=== PATIENT | female | born 1955 | race Caucasian/White ===

== ENCOUNTER 2017-02-23 11:33 | Emergency (ER) | payer OTHER ==
[~2017-02-23] VITALS: Ht 147.3 cm; Wt 62.0 kg
[~2017-02-23 11:33] MED LIST: AMLO-147 PO; FER325 PO; METF500T4 PO; OMEP40CA6 PO
[2017-02-23 11:41] VITALS: Ht 147.3 cm; Wt 62.0 kg
[2017-02-23] MEDS ORDERED: FER325 PO (15:09)
[2017-02-23] MEDS ORDERED: GLIP-95 PO (15:12)
[2017-02-23 15:29] LABS: ADD SCAN DIFF NO
[2017-02-23 15:34] LABS: ABNORMAL IP MESSAGE 1; HEMATOCRIT 24.8 % (37.0-47.0); HEMOGLOBIN 7.2 g/dl (12.0-16.0); MEAN CORPUSCULAR HEMOGLOBIN 25.1 pg (29.0-33.0); MEAN CORPUSCULAR VOLUME 86.4 fl (82.0-101.0); MEAN PLATELET VOLUME 9.6 fl (7.4-10.4); PLATELET COUNT 77 10^3/UL (140-415); RED BLOOD COUNT 2.87 10^6/ul (4.20-5.40); RED CELL DISTRIBUTION WIDTH 18.5 % (11.5-14.5); WHITE BLOOD COUNT 3.9 10^3/ul (4.8-10.8)
[2017-02-23 15:45] LABS: ALBUMIN 3.7 g/dl (3.3-4.9)
[2017-02-23 15:46] LABS: POTASSIUM 3.6 mmol/L (3.5-5.1)
[2017-02-23 15:48] LABS: ALBUMIN/GLOBULIN RATIO 1.15; BILIRUBIN,INDIRECT 0.4 mg/dl (0-1.1); BILIRUBIN,TOTAL 0.4 mg/dl (0.2-1.3); CREATININE 0.5 mg/dl (0.44-1.00); TOTAL PROTEIN 6.9 g/dl (6.1-8.1)
[2017-02-23 15:49] LABS: CALCIUM 8.6 mg/dl (8.4-10.2)
[2017-02-23 17:06] LABS: LYMPHOCYTES # 0.5 10^3/ul (0.8-2.9); MONOCYTE # 0.5 10^3/ul (0.3-0.9); NEUTROPHIL # 2.8 10^3/ul (1.6-7.5)
--- NOTE | 2017-02-23 17:25 | ERD ---
ER Documentation Chief Complaint Date/Time DATE: 02/23/17 TIME: 17:20 Chief Complaint sent by dr hoyos from blood transfusion, headache HPI This is a 61-year-old female sent by her primary care doctor soha to get a blood transfusion. The patient has a history of chronic anemia and angiodysplasia and cirrhosis. The patient's symptoms is just generalized weakness she does not have any black stools or vomiting and has no menstrual cycles anymore. Patient's had to have blood before and she is here for blood transfusion discharge home per her doctor ROS All systems reviewed and are negative except as per history of present illness. Medications Home Meds Reported Medications Glipizide* (Glipizide*) 10 Mg Tablet, 10 MG PO AC BREAKFAST for TK 1 TAB PO QD AC, #90 TAB 02/23/17 Ferrous Sulfate* (Ferrous Sulfate*) 325 Mg Tabec, 325 MG PO TID, TAB 02/23/17 Amlodipine Besylate* (Amlodipine Besylate*) 10 Mg Tablet, 10 MG PO DAILY, TAB 10/23/14 Discontinued Reported Medications Ferrous Sulfate* (Ferrous Sulfate*) 325 Mg Tabec, 325 MG PO DAILY, TAB 10/14/16 Omeprazole* (Omeprazole*) 40 Mg Capsule.dr, 40 MG PO DAILY, #30 CAP 10/14/16 Metformin* (Glucophage*) 500 Mg Tab, 500 MG PO BID, TAB 10/23/14 Allergies Allergies: Coded Allergies: No Known Allergy (Unverified , 02/23/17) PMhx/Soc History of Surgery: Yes (C/S X 3) Anesthesia Reaction: No Hx Neurological Disorder: No Hx Respiratory Disorders: No Hx Cardiac Disorders: No Hx Psychiatric Problems: No Hx Miscellaneous Medical Probl: Yes (HTN, ANEMIA, LIVER CIRRHOISIS, CANCER OF THE LIVER PER PT.) Hx Alcohol Use: Yes Hx Substance Use: No Hx Tobacco Use: No FmHx Family History: No coronary disease Physical Exam Vitals Vital Signs Date Time Temp Pulse Resp B/P Pulse Ox O2 Delivery O2 Flow Rate FiO2 02/23/17 11:41 97.6 83 18 138/67 98 Physical Exam Const: Well-developed, well-nourished Head: Atraumatic, normocephalic Eyes: Normal Conjunctiva, PERRLA, EOMI, normal sclera, no nystagmus ENT: Normal External Ears, Nose and Mouth, moist mucus membranes. Neck: Full range of motion. No meningismus, no lymphadenopathy. Resp: Clear to auscultation bilaterally, no wheezing, rhonchi, rales Cardio: Regular rate and rhythm, 3/6 systolic ejection murmur, S1 S2 present Abd: Soft, non tender x 4, non distended. Normal bowel sounds, no guarding or rebound, no pulsitile abdominal masses or bruits Skin: No petechiae or rashes, no ecchymosis , no maculopapular rash Back: No midline or flank tenderness Ext: No cyanosis, or edema, FROM x 4, normal inspection, neurovascularly intact x 4 Neur: Awake and alert, STR 5/5 x 4, sensation intact x 4, no focal findings, cerebellum intact Psych: Normal Mood and Affect Result Diagram: 02/23/17 1520 02/23/17 1520 Results 24 hrs Laboratory Tests Test 02/23/17 14:45 02/23/17 15:20 Bedside Glucose 66mg/dL White Blood Count 3.910^3/ul Red Blood Count 2.8710^6/ul Hemoglobin 7.2g/dl Hematocrit 24.8% Mean Corpuscular Volume 86.4fl Mean Corpuscular Hemoglobin 25.1pg Mean Corpuscular Hemoglobin Concent 29.0g/dl Red Cell Distribution Width 18.5% Platelet Count 7710^3/UL Mean Platelet Volume 9.6fl Neutrophils % 72.0% Lymphocytes % 14.0% Monocytes % 14.0% Neutrophils # 2.810^3/ul Lymphocytes # 0.510^3/ul Monocytes # 0.510^3/ul Sodium Level 143mmol/L Potassium Level 3.6mmol/L Chloride Level 107mmol/L Carbon Dioxide Level 26mmol/L Anion Gap 14 Blood Urea Nitrogen 10mg/dl Creatinine 0.50mg/dl Glucose Level 68mg/dl Calcium Level 8.6mg/dl Total Bilirubin 0.4mg/dl Direct Bilirubin 0.00mg/dl Indirect Bilirubin 0.4mg/dl Aspartate Amino Transf (AST/SGOT) 43IU/L Alanine Aminotransferase (ALT/SGPT) 40IU/L Alkaline Phosphatase 112IU/L Total Protein 6.9g/dl Albumin 3.7g/dl Globulin 3.20g/dl Albumin/Globulin Ratio 1.15 Procedures/MDM Patient is anemic at 7.2. Her blood is ready to be transfused however she is refusing to get the blood and wants to go home. We had extensive discussion with her about getting the blood and the necessity of it. Patient says she wants to go home because it is too loud in the ER. We had the donor services manager speak with her and she still will leave AGAINST MEDICAL ADVICE Departure Diagnosis: Primary Impression: Anemia Anemia type: unspecified type Qualified Code: D64.9 - Anemia, unspecified type Condition: Stable HU AVERY DO Feb 23, 2017 17:25
== END 2017-02-23 17:33 | disposition left against medical advice (07) ==
LOC: E/R 11:33
DX: D64.9 Anemia, unspecified (principal); I10 Essential (primary) hypertension; E11.9 Type 2 diabetes mellitus without complications; Z79.84 Long term (current) use of oral hypoglycemic drugs; Z85.05 Personal history of malignant neoplasm of liver
CPT/HCPCS: 36415; 80053; 82962; 85025; 86850; 86900; 86901; 86920; Z7502; 99283

== ENCOUNTER 2017-03-15 08:52 | Outpatient (CLI) | payer OTHER ==
[~2017-03-15] VITALS: Ht 139.7 cm; Wt 59.5 kg
[~2017-03-15 08:52] MED LIST changes: +GLIP-95 PO; -METF500T4 PO; -OMEP40CA6 PO
[2017-03-15 09:00] VITALS: BP 126/60; PULSE 73; RESP 18; Ht 139.7 cm; Wt 59.5 kg
[2017-03-15] MEDS ORDERED: GABA300C16 PO (09:24)
[2017-03-15] MEDS ORDERED: RANI300T PO (09:24)
[2017-03-15] MEDS ORDERED: QUIN20TA23 PO (09:28)
--- NOTE | 2017-03-15 22:35 | CONS ---
[facility] INITIAL OUTPATIENT CONSULTATION NOTE DATE OF CONSULTATION: 03/15/2017 PLACE OF SERVICE: [facility]. ASSESSMENT AND PLAN: A very pleasant but unfortunate 62-year-old lady with multiple lesions in the setting of hepatitis C cirrhosis, concerning for hepatocellular carcinoma. Given the relatively low alpha fetoprotein, my recommendation was to proceed with percutaneous biopsy of 1 of these lesions with image guidance. The patient is not a good surgical candidate given the amount of portal hypertension and the distribution of these lesions. She could potentially benefit from local treatment to the liver in the form of transarterial chemoembolization, bland embolization, radioembolization, or similar local treatments. Systemic chemotherapy may also be considered, although the results are not very promising. I do not believe that there is any indication for other acute interventions at the moment and consider the patient to be high risk for surgical complications, should that be necessary, and poor prognosis if this is multifocal hepatocellular carcinoma. Possibility of a liver transplant evaluation should be considered, although the number of lesions argue against candidacy. Biopsy again would help in this arena. I explained all this in detail with the patient (there was no family present during any of my discussions with the patient) and answered all her questions to the best of my ability. I believe that she understood and wished to proceed with the plans. With above assessment, I recommend the followin. Percutaneous liver biopsy under image guidance. 2. Multidisciplinary Tumor Board presentation. 3. Possible consideration for liver transplant evaluation. 4. Careful ongoing evaluation by hepatology. 5. Careful ongoing evaluation by hematology regarding bleeding issues. 6. Possible local treatment to the liver in the form of transarterial chemoembolization, should the biopsy be positive. Thank you again for allowing us to participate in the care of this very pleasant lady and I am certain her wonderful family. If there are any questions , please feel free to contact me at [phone]. UPDATED CLINICAL SUMMARY: A very pleasant 62-year-old lady with multiple comorbid issues including a BMI of 30.5 as well as hypertension, depression, arthritis, back pain, and a number of other medical issues with diagnosis of hepatitis C infection, which likely is from the time of her C-sections about 40 years ago, and known cirrhosis of the liver, who was recently found to have liver lesions. COMORBIDITIES: 1. BMI of 30.5. 2. Nonalcoholic fatty liver disease on ultrasound as well as history of diabetes as a predisposing risk factor. 3. Diabetes mellitus. 4. Hepatitis A immune. 5. Hypertension. 6. Depression. 7. Arthritis. 8. Back pain. 9. Anemia requiring blood transfusions in the past. 10. History of eating dirt. 11. History of gastritis. 12. Gastroesophageal reflux disease without esophagitis. 13. Epistaxis, which is frequent and leading to anemia or at least contributing to it. 14. History of systolic murmur diagnosed 11/2016. 15. History of C-sections x3. 16. 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 17. History of blood transfusions in 1973, 2013, and 2014. 18. Complication of portal hypertension with borderline thrombocytopenia with platelet count in the low 100s as well as significant varices around the spleen. HISTORY OF PRESENT ILLNESS: The patient is a very pleasant 62-year-old lady with above-mentioned comorbidities who we were kindly asked to consult regarding management of her newly discovered lesions in the liver. These were seen in a recent ultrasound and that led to a CT scan of abdomen and pelvis, triple phase, with and without contrast on 02/12/2017 that showed marked nodularity in contour of the liver consistent with the patient's history of cirrhosis. There are numerous ill-defined heterogeneously enhancing masses noted in the liver, which appear to demonstrate washout within the right posterior inferior lobe of the liver, largest of which measures 3.6 x 4 cm (8, image 54). There are also several ill-defined hypoenhancing masses noted throughout the liver, for measurement purposes, within the posterior aspect of segment 3 measuring 1.1 x 1.2 cm (8, image 36) and within the central right lobe of the liver, likely within segment 8 measuring 1.3 x 1.4 cm (8, image 30) . The hepatic vasculature was thought to be patent and the portal vein was within normal limits of caliber measuring 11 mm. Spleen measured at 13.5 cm and multiple splenic hilar mesenteric and retroperitoneal collateral vessels were noted. Splenorenal shunt was noted. Mild enlarged periportal lymph nodes were also noted measuring up to 12 mm in short axis diameter. No retroperitoneal lymphadenopathy noted and no ascites. Note that I personally reviewed these images and I agree in general with their overall reported findings. The patient herself did not have any other major complaints and has been living a relatively complicated life, mainly due to her epistaxis and anemia requiring blood transfusions and care from hematology. ALLERGIES: NO KNOWN DRUG ALLERGIES. MEDICATIONS: At home the patient is listed to be on: 1. Ferrous sulfate. 2. Gabapentin. 3. Glipizide. 4. Quinapril. 5. Ranitidine. SOCIAL HISTORY: The patient lives with her family. She is originally from [facility] and has 2 children. 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 She is a never smoker and rarely drank alcohol in the past and quit early 2015. No history of intravenous drug abuse. FAMILY HISTORY: Father is with liver disease. There is no mention of major medical, surgical, or oncologic problems in the family. REVIEW OF SYSTEMS: Other than the above-mentioned, there are no other pertinent positives or pertinent negatives in a complete 14-point review of systems. PHYSICAL EXAMINATION: GENERAL: The patient appears to be a very pleasant lady of descent, appearing stated age, sitting in a chair comfortably, and in no acute distress. BMI is 30.5. VITAL SIGNS: Temperature 97.6. Blood pressure 126/60, pulse 73, respiratory rate 18, pulse oximetry 95% on room air. HEAD AND NECK: Exam is significant for slight dried blood in the nostrils. HEENT: Normocephalic and atraumatic. Extraocular muscles and hearing are grossly intact bilaterally and symmetrically. Sclerae are nonicteric. Oral cavity is clear; oral mucosa appeared to be pink and moist. Dentition: fair. NECK: Supple. There is no lymphadenopathy or JVD. There is no submental, submandibular or supraclavicular lymphadenopathy. CHEST: Rises symmetrically with each breath; patient is breathing comfortably. There are no audible wheezes, rales or rhonchi on the gross exam. HEART: Pulse is regular and palpable on the right wrist. Capillary refill was normal. Carotid pulses are palpable bilaterally and symmetrically in the neck. EXTREMITIES: Lower extremities contain no pitting edema around the ankles bilaterally and symmetrically. ABDOMEN: Abdomen is soft, nontender and nondistended. There are no peritoneal signs or guarding. No evidence of ascites, organomegaly, caput medusae, engorged subcutaneous veins, or other abnormalities. SKIN: Appears to be pink and feels warm to touch. NEUROLOGIC: Awake, alert, and follows commands appropriately. LABORATORY VALUES: As above. Note that in 12/2016, patient's creatinine was 0.56. Total bilirubin 0.4, alkaline phosphatase is 105, AST 38, ALT 24, albumin 3.7. White blood cell count 2.5, hemoglobin 8.8, platelets 105. INR 1.1. Alpha fetoprotein 5.6. IMAGING: As above. Note that I personally reviewed all the available and pertinent images and I agree in general with their overall reported findings. Dictated By: ARIE GARCIA/DAVIDE Conf#: [id number] DID#: [id number] CC: Ghanshyam Tello; Joshua Mcgrath; WINDY REDDY MD;*EndCC* MTDD
== END 2017-03-15 14:33 | disposition home or self-care (01) ==
LOC: HPC 08:52
PROVIDERS: ATTEND Transplant Surgery
DX: K76.9 Liver disease, unspecified (principal); K74.60 Unspecified cirrhosis of liver; K76.0 Fatty (change of) liver, not elsewhere classified; E11.9 Type 2 diabetes mellitus without complications; I10 Essential (primary) hypertension; F32.9 Major depressive disorder, single episode, unspecified; M19.90 Unspecified osteoarthritis, unspecified site; D64.9 Anemia, unspecified; K21.9 Gastro-esophageal reflux disease without esophagitis; K76.6 Portal hypertension; D69.6 Thrombocytopenia, unspecified; I86.8 Varicose veins of other specified sites; M54.9 Dorsalgia, unspecified
CPT/HCPCS: G0463

== ENCOUNTER 2017-04-07 08:28 | Day surgery (SDC) | payer OTHER ==
[2017-04-07] VITALS (48 sets, daily range): BP systolic 81–177; BP diastolic 52–100; PULSE 60–106; RESP 11–31; Ht 142.2 cm; Wt 60.0 kg
[~2017-04-07] VITALS: Ht 142.2 cm; Wt 60.0 kg
[~2017-04-07 08:28] MED LIST changes: -AMLO-147 PO; +GABA300C16 PO; +QUIN20TA23 PO; +RANI300T PO
[2017-04-07] MEDS ORDERED: GLIP-95 PO (09:25)
[2017-04-07] MEDS ORDERED: ACET650T98 PO (09:29)
[2017-04-07 10:19] LABS: ADD SCAN DIFF NO
[2017-04-07 10:31] LABS: BASOPHILS % 0.6 % (0.0-2.0); EOSINOPHILS % 1.2 % (0.0-7.0); HEMATOCRIT 31.5 % (37.0-47.0); HEMOGLOBIN 9.6 g/dl (12.0-16.0); MEAN CORPUSCULAR HEMOGLOBIN 28.3 pg (29.0-33.0); MEAN CORPUSCULAR HGB CONC 30.5 g/dl (32.0-37.0); MEAN CORPUSCULAR VOLUME 92.9 fl (82.0-101.0); MEAN PLATELET VOLUME 10.8 fl (7.4-10.4); MONOCYTE # 0.3 10^3/ul (0.3-0.9); MONOCYTES % 9.3 % (0.0-11.0); NEUTROPHILS % 59.6 % (39.0-77.0); PLATELET COUNT 122 10^3/UL (140-415); RED BLOOD COUNT 3.39 10^6/ul (4.20-5.40); RED CELL DISTRIBUTION WIDTH 17.5 % (11.5-14.5); WHITE BLOOD COUNT 3.4 10^3/ul (4.8-10.8)
[2017-04-07] MEDS ORDERED: LIDOCAINE 1% (MDV) 20 ML INJ ONE (10:31)
[2017-04-07] MEDS ORDERED: GELATIN 12MM X 7 MM SPONGE ONE (10:31)
[2017-04-07 10:37] LABS: ALBUMIN/GLOBULIN RATIO 1.42; BILIRUBIN,INDIRECT 0.5 mg/dl (0-1.1); BILIRUBIN,TOTAL 0.5 mg/dl (0.2-1.3); TOTAL PROTEIN 6.8 g/dl (6.1-8.1)
[2017-04-07 10:41] LABS: CALCIUM 8.8 mg/dl (8.4-10.2); CREATININE 0.5 mg/dl (0.44-1.00); POTASSIUM 4.2 mmol/L (3.5-5.1)
[2017-04-07 10:44] LABS: INR 1.15; PROTIME 14.7 Sec (12.2-14.2); PT RATIO 1.1
[2017-04-07 10:45] LABS: PARTIAL THROMBOPLASTIN TIME 33.2 Sec (25.0-35.0)
[2017-04-07] MEDS ORDERED: FENTAnyl 50 MCG/ML VIAL ONE ×2 (11:17→11:40)
[2017-04-07] MEDS ORDERED: MIDAZOLAM 1 MG/ML 2 ML INJ ONE (11:18)
[2017-04-07] MEDS ORDERED: HYDROmorphONE 1 MG/ML SYG ONE (12:38)
[2017-04-07] MEDS ORDERED: ONDANSETRON 4 MG INJ ONE (12:40)
--- NOTE | 2017-04-07 12:42 | RADRPT ---
PROCEDURE: Ultrasound guided liver biopsy CLINICAL INDICATION: Liver mass, hepatitis C COMPARISON: None TECHNIQUE: Multiple sonographic images of the liver were obtained utilizing a grayscale and color- flow. The images were reviewed on a high-resolution PACS workstation. Ultrasound examination demonstrated multiple hyperechoic and hypoechoic partially circumscribed lesi ons in the liver including a 3.2 x 1.9 cm lesion in the right lobe which is hypoechoic and a second lesion in the right lobe which is hyperechoic and measures 3.0 x 2.8 cm. . Versed and Fentanyl were administered by the nurse who monitored the patient. Following distended prep, and to under ultrasound guidance, a 17 gauge coaxial needle was advanced i nto the lesion. Three 18-gauge biopsies were obtained and submitted to cytology where preliminary an alysis deemed the specimens to be adequate. The tract was embolized with Gelfoam slurry as the needl e was removed. Postprocedure scans showed no evidence of bleeding. A sterile dressing was applied. The patient tolerated the procedure well. FINDINGS: As above. IMPRESSION: Uncomplicated ultrasound-guided liver mass biopsy, as above. RPTAT: EE Physician Carolina Date Time Electronically viewed and signed by Physician Carolina on 04/07/2017 12:42 /
--- NOTE | 2017-04-07 12:43 | RADRPT ---
PROCEDURE: Ultrasound guided liver biopsy CLINICAL INDICATION: Hepatitis C, cirrhosis TECHNIQUE: Multiple sonographic images of the liver were obtained utilizing a grayscale and color-flow. The amber ges were reviewed on a high-resolution PACS workstation. Versed and Fentanyl were administered by the nurse who monitored the patient. A site in the patient's RIGHT abdomen was selected and marked. The area was prepped and draped in the usual sterile fashion. 1% lidocaine was utilized. A single core biopsy was obtained with an 18-gauge biopsy gun. The needle was removed. A sterile dressing was applied. The patient tolerated the procedure well. COMPARISON: None FINDINGS: As above IMPRESSION: Uncomplicated ultrasound-guided liver biopsy. RPTAT: EE Physician Carolina Date Time Electronically viewed and signed by Physician Carolina on 04/07/2017 12:43 /
[2017-04-07] MEDS ORDERED: ONDANSETRON 4 MG INJ IV STA (13:50)
[2017-04-07] MEDS ORDERED: HYDROCODONE/APAP (5/325) TAB PO PRN ×3 (14:30→15:00)
[2017-04-07] MEDS ORDERED: HYDROmorphONE 1 MG/ML SYG IV ONE (14:30)
[2017-04-07] MEDS ORDERED: NACL 0.9% 3 ML SYG IV SCH (15:00)
[2017-04-07] MEDS ORDERED: ONDANSETRON 4 MG INJ IV PRN (15:00)
[2017-04-07] MEDS ORDERED: DOCUSATE SODIUM 100 MG CAP PO PRN (15:00)
[2017-04-07] MEDS ORDERED: morphine 2 MG INJ IV PRN (15:00)
[2017-04-07] MEDS ORDERED: ZOLPIDEM 5 MG TAB PO PRN (15:00)
[2017-04-07] MEDS ORDERED: ACETAMINOPHEN 325 MG TAB PO PRN (15:00)
[2017-04-07] MEDS: D5W-0.45 NACL + KCL 20 MEQ 1,000 ML IV SCH (17:17)
[2017-04-07] MEDS ORDERED: GLUCAGON 1 MG INJ IM PRN (17:30)
[2017-04-07] MEDS ORDERED: GLUCOSE GEL 15 GRAM TUBE BUCCAL PRN (17:30)
[2017-04-07] MEDS ORDERED: GLUCOSE GEL 15 GRAM TUBE PO PRN ×2 (17:30)
[2017-04-07] MEDS ORDERED: DEXTROSE 50% 50 ML SYRINGE IV PRN ×2 (17:30)
--- NOTE | 2017-04-07 17:46 | HP ---
DATE OF ADMISSION: 04/07/2017 CHIEF COMPLAINT: Abdominal pain after liver biopsy. HISTORY OF PRESENT ILLNESS: The patient is a 62-year-old female with history of hypertension and di abetes. The patient also has a history of hepatitis C acquired from a blood transfusion in [facility]. The patient has a known history of liver mass and underwent liver biopsy today. It was fe lt that the patient may have had some general bleeding as a result of the biopsy, hence, the patient was felt to require observation overnight. The patient does report some pain in the back on the ri t side. Otherwise, she has no significant complaints. PAST MEDICAL HISTORY: As per HPI. HOME MEDICATIONS: 1. Ferrous sulfate. 2. Glipizide. 3. Ranitidine. 4. Tylenol. 5. Quinapril. ALLERGIES: NO KNOWN DRUG ALLERGIES. FAMILY HISTORY: Unknown. SOCIAL HISTORY: Denies any alcohol, tobacco, or drug abuse. REVIEW OF SYSTEMS: A 12-point review of systems negative except as in HPI. PHYSICAL EXAMINATION: VITAL SIGNS: Temperature is 97.8, pulse 74, respiratory rate is 13, BP is 125/70, saturation 98% on room air. GENERAL: No acute distress, alert and oriented. HEENT: Normocephalic, atraumatic. LUNGS: Clear to auscultation. CARDIOVASCULAR: Regular rate and rhythm. ABDOMEN: Nondistended, nontender, soft. Small hematoma noted in the right upper quadrant. EXTREMITIES: No clubbing, cyanosis, or edema. LABORATORY TESTS: White count 3.4, hemoglobin 11.6, platelets are 122. Chemistry within normal fernandez its. Chloride 113, AST 62. INR is 1.15. DIAGNOSTICS: Ultrasound-guided liver biopsy shows uncomplicated ultrasound-guided liver biopsy. ASSESSMENT AND PLAN: 1. Liver mass, status post ultrasound-guided biopsy. The patient being admitted for observation se condary to a hematoma. Hematoma has been demarcated and will monitor. The patient will need follow up on pathology when available. Dr. Steven Beebe is also on the case. 2. Because the patient has a history of hepatitis C, liver mass is concerning for possible malignan cy. Once again, we will follow up with pathology once available. 3. Hypertension. Resume home medications. 4. Non-insulin requiring diabetes. Treat with sliding scale while in house. 5. Pancytopenia secondary to liver disease or hepatitis C. We will monitor. 7. Prophylaxis sequential compression devices. Dictated By: JOSE PAGE/DAVIDE Conf#: [id number] DID#: [id number]
[2017-04-07] MEDS: Insulin NOVOLOG SS MILD Algorithm (SS with meals and bedtime) SC SCH (20:30)
[2017-04-07] MEDS ORDERED: INSULIN ASPART [NOVOLOG] 3 ML PEN SC SCH ×2 (21:00)
[2017-04-08] MEDS: D5W-0.45 NACL + KCL 20 MEQ 1,000 ML IV SCH ×3 (00:39→10:39)
[2017-04-08 05:30] LABS: ADD SCAN DIFF NO
[2017-04-08 06:01] LABS: ABNORMAL IP MESSAGE 1; BASOPHILS % 0.6 % (0.0-2.0); EOSINOPHILS % 0.9 % (0.0-7.0); HEMATOCRIT 28.4 % (37.0-47.0); HEMOGLOBIN 8.8 g/dl (12.0-16.0); LYMPHOCYTES # 0.6 10^3/ul (0.8-2.9); MEAN CORPUSCULAR HEMOGLOBIN 28.6 pg (29.0-33.0); MEAN CORPUSCULAR VOLUME 92.2 fl (82.0-101.0); MEAN PLATELET VOLUME 10.3 fl (7.4-10.4); MONOCYTE # 0.4 10^3/ul (0.3-0.9); MONOCYTES % 12.5 % (0.0-11.0); NEUTROPHIL # 2.2 10^3/ul (1.6-7.5); NEUTROPHILS % 68.6 % (39.0-77.0); PLATELET COUNT 103 10^3/UL (140-415); RED BLOOD COUNT 3.08 10^6/ul (4.20-5.40); RED CELL DISTRIBUTION WIDTH 17.2 % (11.5-14.5); WHITE BLOOD COUNT 3.2 10^3/ul (4.8-10.8)
[2017-04-08 06:08] LABS: LYMPHOCYTES % 17.4 % (15.0-51.0)
[2017-04-08 06:13] LABS: ALBUMIN 3.4 g/dl (3.3-4.9); ALBUMIN/GLOBULIN RATIO 1.47; BILIRUBIN,INDIRECT 0.6 mg/dl (0-1.1); BILIRUBIN,TOTAL 0.6 mg/dl (0.2-1.3); CALCIUM 8.2 mg/dl (8.4-10.2); CREATININE 0.5 mg/dl (0.44-1.00); POTASSIUM 4.1 mmol/L (3.5-5.1); TOTAL PROTEIN 5.7 g/dl (6.1-8.1)
[2017-04-08 06:26] LABS: MAGNESIUM 1.9 mg/dl (1.7-2.5); PHOSPHORUS 2.9 mg/dl (2.5-4.9)
[2017-04-08] MEDS: Insulin NOVOLOG SS MILD Algorithm (SS with meals and bedtime) SC SCH ×2 (08:00→12:00)
[2017-04-08 08:35] VITALS: BP 120/61; RESP 18
[2017-04-08] MEDS ORDERED: BENAZEPRIL 20 MG TAB PO SCH (09:00)
--- NOTE | 2017-04-08 13:40 | PDOCDIS ---
Discharge Instructions CONDITION Patient Condition: Good HOME CARE INSTRUCTIONS: Diet Instructions: Regular ACTIVITY: Activity Restrictions: No Restrictions FOLLOW UP/APPOINTMENTS Appointments F/U WITH YOUR PHYSICIANS SCHEDULED JOSE DENG Apr 08, 2017 13:40
--- NOTE | 2017-04-08 16:13 | DS ---
DATE OF ADMISSION: 04/07/2017 DATE OF DISCHARGE: 04/08/2017 FINAL DIAGNOSES: 1. Liver mass, status post ultrasound-guided biopsy with hematoma, now stable. The patient should follow up with Dr. Steven Beebe for pathology results. 2. History of hepatitis C. 3. Hypertension. 4. Sqd-edhbrzj-envrkbmjs diabetes. 5. Pancytopenia secondary to liver disease or hepatitis C. HOSPITAL COURSE: The patient is a 62-year-old female with history of hepatitis C, hypertension and diabetes. The patient acquired hepatitic C from blood transfusions in [facility]. The patient a known history of liver mass and underwent liver biopsy. She was supposed to be discharged home a s the procedure was supposed to be ambulatory procedure. The patient reportedly developed a hematom a and interventionalist wanted to keep the patient for observation. The patient's hematoma did not worsen. The patient's vitals and H and H remained stable. The patient was felt to be stable for di scharge. The patient's hematoma on the right side of her abdomen was demarcated and the hematoma di d not expand. The patient was felt to be stable for discharge. On the day of discharge, patient's vitals, labs, physical exam were stable. She had no acute complaints. Questions answered. CONDITION ON DISCHARGE: Stable. DISPOSITION: To home. MEDICATIONS: The patient is continue her usual home medications. No new medications were prescribe d. FOLLOWUP: She is to follow up with her PCP in 1 to [address] Steven Beebe for liver mas s pathology results. Greater than 30 minutes were spent coordinating discharge of the patient. Dictated By: JOSE DENG MD BS/NTS Conf#: [id number] DID#: [id number]
== END 2017-04-08 16:00 | disposition home or self-care (01) ==
LOC: SDS 08:28 → MS2 19:00 → SDS 04-08 16:00
PROVIDERS: ATTEND Transplant Surgery
DX: B18.2 Chronic viral hepatitis C (principal); I10 Essential (primary) hypertension; E11.9 Type 2 diabetes mellitus without complications
CPT/HCPCS: 47000; 76942; 80053; 80061; 82962; 83036; 83735; 84100; 85025; 85610; 85730; 88307; 88313; 88331; J1170; J1815; J2250; J2270; J2405; J3010; J3480; Z7610; 88341; 88342; 99144

== ENCOUNTER 2017-04-12 15:01 | Outpatient (CLI) | payer OTHER ==
[~2017-04-12] VITALS: Ht 165.1 cm; Wt 60.5 kg
[~2017-04-12 15:01] MED LIST changes: +ACET650T98 PO; -GABA300C16 PO
[2017-04-12 15:18] VITALS: Ht 165.1 cm; Wt 60.5 kg
[2017-04-12 15:20] VITALS: BP 118/59; PULSE 73; RESP 18
--- NOTE | 2017-04-12 15:29 | PN ---
Date/Time of Note Date/Time of Note DATE: 04/12/17 TIME: 15:24 Outpatient Progress Note Chief Complaint Liver mass/diabetes/hypertension/hepatitis C HPI Liver mass/patient has liver mass, patient had a biopsy, patient has a hematoma , and has bruise, no bleeding at present, no headache dizziness, no abdominal pain, no fatigue, Diabetes/no polydipsia or polyuria, or hypoglycemia, gastroparesis blood sugar control, Hypertension/no headache or dizziness, blood pressure controlled, no local focal weakness, Hepatitis C/patient has hepatitis C, no nausea or vomiting, patient has liver mass, was biopsied,, Review of Systems Const: No Fever, no chills, no Wt. loss, no Fatigue, normal appetite, no diaphoresis. Eyes: No pain, no discharge, no redness, no visual change, no foreign body. ENT: No pain, no bleeding, no congestion, no sore throat, no dysphagia, no discharge or rhinitis. Lymph: No adenopathy, no tender nodes, no lymphedema. Resp: No SOB, no cough, no sputum, no wheezing, no chest pain. CV: No chest pain, no palpitaions, no SAMSON, no PND, no edema. GI: Normal appetite, right upper quadrant minimal pain, and has bruise, no nausea, no vomiting, no diarrhea, no blood, no constipation. : No frequency, no urgency, no dysuria, no hematuria, no flank pain, no discharge, no bleeding. Musc: No bone/joint pain, no back pain, no neck pain, no knee pain, no restricted ROM. Skin: No rash, no skin lesions, no erythema, no laceration, right upper quadrant bruising, no pruritus. Neuro: No WILKES, no dizziness, no syncope, no seizure, no focal-weakness. Endo: No polyuria, no polydypsia, no dry-skin, no temp-intolerance. Psych: No hallucinations, no depression, no anxiety, no suicidal ideation. Ext: No edema, no pain, no ulcer, no weakness. Physical Exam Vital Signs Date Time Temp Pulse Resp B/P Pulse Ox O2 Delivery O2 Flow Rate FiO2 04/12/17 15:20 98.2 73 18 118/59 100 Room Air General Appearance: A 62 year-old female who appears well-developed, well- nourished, in no acute distress. HEENT: Head normocephalic, atraumatic. Pupils equal, round, reactive to light and accommodate. Sclerae are no jaundice. Nasal turbinates pink without erythema or nasal discharge. Mucous membranes pink and moist without lesions. Oropharynx clear without any exudate or discharge. NECK: Supple. Trachea midline, No thyromegaly, No cervical lymphadenopathy, No mass, No carotid bruits, No JVD, Carotid pulses 2+ bilaterally. PULMONARY: Clear to auscultaion bilaterally, No retractions, Chest expansion symmetric bilaterally, no rales, no ronchi, no dulness on percussion. CARDIAC: Normal SI and S2, Regular rate and rythm, no murmur, gallop, or rub. GASTROINTESTINAL: Abdomen is soft, minimal right upper quadrant discomfort, and has bruise, secondary to biopsy, Non Rigid, No distention, Positive bowel sounds x4 quadrants, Liver normal. SKIN: Warm, dry, no rash, right upper quadrant bruise slightly, the site of biopsy,, no echmosis. EXTREMITIES: Bilateral lower extremities normal, no edema, no phlabitus, pulse palpable, no contracture. MUSCULOSKELETAL: Spine Normal, Non-tender, Normal range of motion, No swelling, no deformity, no clubbing, or cyanosis, the patient has no edema to bilateral lower extremities, dorsalis pedis pulses palpable bilaterally. NEUROLOGIC: The patient is awake, alert, oriented, responding to yes/no questions appropriately, moving all extremities, cranial nerve intact, normal strenght, normal power, normal coordination, normal gait. Allergies Coded Allergies: No Known Allergy (Unverified , 04/07/17) PMH Diabetes/hypertension/hepatitis C/liver mass/status post biopsy Social Hx No smoking no drinking, Family Hx Noncontributory Assessment/Plan Impression Liver mass/status post biopsy/hematoma Diabetes Hypertension Hepatitis C Plan Patient education done about a bowel disease, patient need to follow with primary care physician, Patient has bruise on the right upper quadrant, it will disappear in few weeks, patient advised to increase activity, walk regularly, lose weight slightly, control the blood sugar, control of blood pressure, We will try to get report of the biopsy, and primary care physician and GI to follow, Medications Home Meds Reported Medications Acetaminophen* (Acetaminophen* 8 Hour) 650 Mg Tablet.sa, 650 MG PO DAILY Y for PAIN AND OR ELEVATED TEMP, #30 TAB 04/07/17 Glipizide* (Glipizide*) 10 Mg Tablet, 10 MG PO DAILY, TAB 04/07/17 Quinapril Hcl (Quinapril Hcl) 20 Mg Tablet, 20 MG PO DAILY, #30 TAB 03/15/17 Ranitidine Hcl* (Ranitidine Hcl*) 300 Mg Tablet, 300 MG PO HS, #30 TAB 03/15/17 Ferrous Sulfate* (Ferrous Sulfate*) 325 Mg Tabec, 325 MG PO TID, TAB 02/23/17 Discontinued Reported Medications Gabapentin* (Gabapentin*) 300 Mg Capsule, 300 MG PO TID, #90 CAP 03/15/17 OSCAR CATHERINE MD Apr 12, 2017 15:29
== END 2017-04-12 17:00 | disposition home or self-care (01) ==
LOC: DCC 15:01
PROVIDERS: ATTEND Internal Medicine
DX: R16.0 Hepatomegaly, not elsewhere classified (principal); E11.9 Type 2 diabetes mellitus without complications; I10 Essential (primary) hypertension; B19.20 Unspecified viral hepatitis C without hepatic coma

== ENCOUNTER 2017-05-07 14:10 | Outpatient (CLI) | payer OTHER ==
[~2017-05-07] VITALS: Ht 144.8 cm; Wt 60.0 kg
[2017-05-07 14:24] VITALS: BP 103/56; PULSE 73; RESP 18; Ht 144.8 cm; Wt 60.0 kg
--- NOTE | 2017-05-07 14:58 | PN ---
Date/Time of Note Date/Time of Note DATE: 05/07/17 TIME: 14:54 Outpatient Progress Note Chief Complaint Hepatic mass/diabetes/hypertension/hepatitis C HPI Hepatic mass/patient had a hepatic mass, patient was recently hospitalized, patient had biopsy, no fever chill, patient has no bruises, Diabetes/no frequency urgency, polydipsia polyuria or hypoglycemia gastroparesis , Hypertension/no headache or dizziness or lightheadedness, Hepatitis C/no nausea vomiting, no ascites, no jaundice, Review of Systems Const: No Fever, no chills, no Wt. loss, no Fatigue, normal appetite, no diaphoresis. Eyes: No pain, no discharge, no redness, no visual change, no foreign body. ENT: No pain, no bleeding, no congestion, no sore throat, no dysphagia, no discharge or rhinitis. Lymph: No adenopathy, no tender nodes, no lymphedema. Resp: No SOB, no cough, no sputum, no wheezing, no chest pain. CV: No chest pain, no palpitaions, no SAMSON, no PND, no edema. GI: Normal appetite, no pain, no nausea, no vomiting, no diarrhea, no blood, no constipation. : No frequency, no urgency, no dysuria, no hematuria, no flank pain, no discharge, no bleeding. Musc: No bone/joint pain, no back pain, no neck pain, no knee pain, no restricted ROM. Skin: No rash, no skin lesions, no erythema, no laceration, no bruising, no pruritus. Neuro: No WILKES, no dizziness, no syncope, no seizure, no focal-weakness. Endo: No polyuria, no polydypsia, no dry-skin, no temp-intolerance. Psych: No hallucinations, no depression, no anxiety, no suicidal ideation. Ext: No edema, no pain, no ulcer, no weakness. Physical Exam General Appearance: A 62 year-old female who appears well-developed, well- nourished, in no acute distress. HEENT: Head normocephalic, atraumatic. Pupils equal, round, reactive to light and accommodate. Sclerae are no jaundice. Nasal turbinates pink without erythema or nasal discharge. Mucous membranes pink and moist without lesions. Oropharynx clear without any exudate or discharge. NECK: Supple. Trachea midline, No thyromegaly, No cervical lymphadenopathy, No mass, No carotid bruits, No JVD, Carotid pulses 2+ bilaterally. PULMONARY: Clear to auscultaion bilaterally, No retractions, Chest expansion symmetric bilaterally, no rales, no ronchi, no dulness on percussion. CARDIAC: Normal SI and S2, Regular rate and rythm, no murmur, gallop, or rub. GASTROINTESTINAL: Abdomen is soft, non-tender, no hematoma, no ecchymoses bruises or bleeding, Non Rigid, No distention, Positive bowel sounds x4 quadrants, Liver normal. SKIN: Warm, dry, no rash, no bruise, no echmosis. No laceration, no active ecchymosis, EXTREMITIES: Bilateral lower extremities normal, no edema, no phlabitus, pulse palpable, no contracture. MUSCULOSKELETAL: Spine Normal, Non-tender, Normal range of motion, No swelling, no deformity, no clubbing, or cyanosis, the patient has no edema to bilateral lower extremities, dorsalis pedis pulses palpable bilaterally. NEUROLOGIC: The patient is awake, alert, oriented, responding to yes/no questions appropriately, moving all extremities, cranial nerve intact, normal strenght, normal power, normal coordination, normal gait. Allergies Coded Allergies: No Known Allergy (Unverified , 04/07/17) PMH No change Social Hx No change Family Hx No change Assessment/Plan Impression Hepatic mass/diabetes/hypertension/hepatitis C Plan Patient has no bruise, no ecchymosis or bleeding, hepatic site clean, no pain in the right upper quadrant, no pain in the flank, patient remains afebrile, Patient does not have any jaundice, no fatigue, patient feel comfortable, Pathological report still pending, discussed with the patient, patient to follow with the primary care physician, and hepatology, Patient education done about diabetes and hypertension, and hepatitis C, Medications Home Meds Reported Medications Acetaminophen* (Acetaminophen* 8 Hour) 650 Mg Tablet.sa, 650 MG PO DAILY Y for PAIN AND OR ELEVATED TEMP, #30 TAB 04/07/17 Glipizide* (Glipizide*) 10 Mg Tablet, 10 MG PO DAILY, TAB 04/07/17 Quinapril Hcl (Quinapril Hcl) 20 Mg Tablet, 20 MG PO DAILY, #30 TAB 03/15/17 Ranitidine Hcl* (Ranitidine Hcl*) 300 Mg Tablet, 300 MG PO HS, #30 TAB 03/15/17 Ferrous Sulfate* (Ferrous Sulfate*) 325 Mg Tabec, 325 MG PO TID, TAB 02/23/17 OSCAR CATHERINE MD May 07, 2017 14:58
== END 2017-05-07 16:48 | disposition home or self-care (01) ==
LOC: DCC 14:10
PROVIDERS: ATTEND Internal Medicine
DX: K76.89 Other specified diseases of liver (principal); E11.9 Type 2 diabetes mellitus without complications; I10 Essential (primary) hypertension; B19.20 Unspecified viral hepatitis C without hepatic coma

== ENCOUNTER 2017-07-28 13:21 | Outpatient (CLI) | payer OTHER ==
[~2017-07-28] VITALS: Ht 139.7 cm; Wt 61.4 kg
[~2017-07-28 13:21] MED LIST changes: +ACET-2047 PO; -ACET650T98 PO
[2017-07-28 13:25] VITALS: BP 119/60; PULSE 82; RESP 20; Ht 139.7 cm; Wt 61.4 kg
--- NOTE | 2017-07-28 14:34 | PN ---
Date/Time of Note Date/Time of Note DATE: 07/28/17 TIME: 14:15 Assessment/Plan Assessment/Plan Assessment/Plan [facility] Progress Note Date of Service: 07/28/2017 Location of Service: [facility] at [facility] Today's Assessment & Plan: Overall stable and doing relatively well without any specific symptoms that could be related to her liver, with the exception of minor discomfort in the flank. Today's multidisciplinary tumor board recommended and agreed with follow -up images in September 2017 as well as repeat attempts at biopsy at that time. Abdomen remains benign. No indication for acute surgical intervention. Patient 's main complaint was black discharge from her nose, possibly indicating sinus problems as well as headaches. Since no axial images have been done that we can detect, I am ordering a head CT as well as facial CT to look at sinuses, especially given the presence of masses in the liver. Note that patient has seen 3 other specialists and no further recommendations have been made. But there also was no axial images were ordered and I do believe that they are indicated given her clinical picture. Explained all the above to the patient and answered all questions. Patient appeared to understand and agreed with plans With above assessment, I've recommended the following for today: 1. CT scan of head as well as face with sinuses 2. Liver dedicated CT scan as well as liver biopsy in 2 months (September 2017) 3. Follow-up with PCP 4. Follow-up with us after liver dedicated CT and biopsy was also done Thank you again for your great care of this very pleasant patient and wonderful family. If there are any questions, please feel free to call me at [phone]. Nature of presenting problem: High severity Please note that, given the extensive number of diagnoses or management options , the extensive amount and/or complexity of data needed to be reviewed, and I risk of complications and/or morbidity or mortality, this qualifies as high complexity type of decision-making. Disclaimers: 1. Inadvertent spelling and grammatical errors are likely due to electronic health record (EHR)/dictation software used and do not reflect on the quality of delivered patient care. 2. The electronic timestamp recorded on this note does not necessarily reflect the actual date and time of the visit or the service. 3. Portions of this note may have been created through electronic templates and computer algorithms that might bring in information either from the system or from other physicians and providers. Please note that such information may or may not contain errors, the occurrence of which are outside of my control. In general (but not always) this happens either in the beginning or at the end of the note. The portion of the note that I have created are generally done in 1 continuous block of text, flanked at the beginning and at the end by " ", and entered into one field in the EHR. 4. There may be other unanticipated errors in the note that are outside of my control. I can only attest to the portions of the note that I have created. UPDATED CLINICAL SUMMARY: A very pleasant 62-year-old lady with multiple comorbid issues including a BMI of 30.5 as well as hypertension, depression, arthritis, back pain, and a number of other medical issues with diagnosis of hepatitis C infection, which likely is from the time of her C-sections about 40 years ago, and known cirrhosis of the liver, who was recently found to have liver lesions. US-guided liver bx Kalli Muhammad [facility] 04/07/17 showed chronic hepatitis C , lobular necroinflammatory activity grade 1/4, portal necroinflammatory activity grade 2/4, fibrosis stage and grade 3-4/4. Also, a focus of possible thickened hepatic plates identified. This was sent to Dr. Collin Mcadams [facility], who thought that the biopsy appeared worrisome, but not diagnostic for hepatocellular carcinoma. COMORBIDITIES: 1. BMI of 30.5. 2. Nonalcoholic fatty liver disease on ultrasound as well as history of diabetes as a predisposing risk factor. 3. Diabetes mellitus. 4. Hepatitis A immune. 5. Hypertension. 6. Depression. 7. Arthritis. 8. Back pain. 9. Anemia requiring blood transfusions in the past. 10. History of eating dirt. 11. History of gastritis. 12. Gastroesophageal reflux disease without esophagitis. 13. Epistaxis, which is frequent and leading to anemia or at least contributing to it. 14. History of systolic murmur diagnosed 11/2016. 15. History of C-sections x3. 16. 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 17. History of blood transfusions in 1973, 2013, and 2014. 18. Complication of portal hypertension with borderline thrombocytopenia with platelet count in the low 100s as well as significant varices around the spleen. 19. US-guided liver bx Kalli Muhammad [facility] 04/07/17 showed chronic hepatitis C, lobular necroinflammatory activity grade 1/4, portal necroinflammatory activity grade 2/ 4, fibrosis stage and grade 3-4/4. Also, a focus of possible thickened hepatic plates identified. This was sent to Dr. Collin Mcadams [facility], who thought that the biopsy appeared worrisome, but not diagnostic for hepatocellular carcinoma. Subjective: No major events or complaints since last visit with the exception of ongoing issues with headache and dark discharge from her nose; no abd pain; minor right flank pain; no n/v/d; no sob or cp; + bowel activity; + flatus; + BM and normal ; + activity; perhaps 5 pound weight gain Objective: Vitals: See below Exam: GENERAL: On exam, the patient was sitting up in a chair and appeared to be comfortable and in no acute distress. ABDOMEN: Soft, nontender and nondistended. There are no peritoneal signs or guarding. SKIN: Skin appears to be pink and feels warm to touch. NEUROLOGIC: Patient is awake, alert, and follows commands appropriately. Exam/Review of Systems Vital Signs Vitals Vital Signs Date Time Temp Pulse Resp B/P Pulse Ox O2 Delivery O2 Flow Rate FiO2 07/28/17 13:25 98.2 82 20 119/60 97 Room Air ARIE TOBIAS M.D. Jul 28, 2017 14:34
== END 2017-07-28 17:00 | disposition home or self-care (01) ==
LOC: HPC 13:21
PROVIDERS: ATTEND Transplant Surgery
DX: K74.60 Unspecified cirrhosis of liver (principal); I10 Essential (primary) hypertension; E11.9 Type 2 diabetes mellitus without complications; F32.9 Major depressive disorder, single episode, unspecified; M19.90 Unspecified osteoarthritis, unspecified site; M54.9 Dorsalgia, unspecified; D64.9 Anemia, unspecified
CPT/HCPCS: G0463

== ENCOUNTER 2017-10-06 13:13 | Outpatient (CLI) | payer OTHER ==
[~2017-10-06] VITALS: Ht 139.7 cm; Wt 59.1 kg
[2017-10-06 13:15] VITALS: BP 136/61; PULSE 83; RESP 18; Ht 139.7 cm; Wt 59.1 kg
--- NOTE | 2017-10-06 17:28 | PN ---
Date/Time of Note Date/Time of Note DATE: 10/06/17 TIME: 17:20 Assessment/Plan Assessment/Plan Assessment/Plan [facility] Progress Note Date of Service: 10/06/2017 Location of Service: [facility] Today's Assessment & Plan: Overall stable. Unfortunately, HCC was confirmed on her recent biopsy results and patient is being set up for TACE. No good surgical options. Explained all the above to the patient and answered all questions. Patient appeared to understand and agreed with plans With above assessment, I've recommended the following for today: 1. TACE (right lobe, followed in a few weeks with L lobe) with f/u CT in 3 months and f/u with us after above and after multidisciplinary tumor board review 2. Follow-up with PCP 3. Consider oncology consultation 4. Very important to involve family and friends in the care as much as possible Thank you again for your great care of this very pleasant patient and wonderful family. If there are any questions, please feel free to call me at [phone]. Nature of presenting problem: High severity Please note that, given the extensive number of diagnoses or management options , the extensive amount and/or complexity of data needed to be reviewed, and I risk of complications and/or morbidity or mortality, this qualifies as high complexity type of decision-making. Disclaimers: 1. Inadvertent spelling and grammatical errors are likely due to electronic health record (EHR)/dictation software used and do not reflect on the quality of delivered patient care. 2. The electronic timestamp recorded on this note does not necessarily reflect the actual date and time of the visit or the service. 3. Portions of this note may have been created through electronic templates and computer algorithms that might bring in information either from the system or from other physicians and providers. Please note that such information may or may not contain errors, the occurrence of which are outside of my control. In general (but not always) this happens either in the beginning or at the end of the note. The portion of the note that I have created are generally done in 1 continuous block of text, flanked at the beginning and at the end by " ", and entered into one field in the EHR. 4. There may be other unanticipated errors in the note that are outside of my control. I can only attest to the portions of the note that I have created. UPDATED CLINICAL SUMMARY: A very pleasant 62-year-old lady with multiple comorbid issues including a BMI of 30.5 as well as hypertension, depression, arthritis, back pain, and a number of other medical issues with diagnosis of hepatitis C infection, which likely is from the time of her C-sections about 40 years ago, and known cirrhosis of the liver, who was recently found to have liver lesions. US-guided liver bx Kalli Muhammad [facility] 04/07/17 showed chronic hepatitis C , lobular necroinflammatory activity grade 1/4, portal necroinflammatory activity grade 2/4, fibrosis stage and grade 3-4/4. Also, a focus of possible thickened hepatic plates identified. This was sent to Dr. Collin Mcadams [facility], who thought that the biopsy appeared worrisome, but not diagnostic for hepatocellular carcinoma. Labs 07/23/17: Alb 3.4, Plt 85, Cr 0.47. Brain CT 08/06/17 Dr[facility] unremarkable; same day sinuses CT mild R nasal septal deviation. Liver CT abd/ pelvis w/wo contrast 08/24/17 Dr. Lyudmila Smith [facility] ([facility]) showed multifocal lesions R lobe with suggestion of HCC (some washout noted), portal HTN and mod volume ascites. Total of 4 lesions noted ( 4.1 cm R inferior; 1.2 cm seg 3, 1.5 cm R, 0.8 mm posterior R, and 1.4 cm medial L, all unchanged since 06/25/17). Labs 08/19/17: Plt 85, T Bili 1.4, Alb 3.4. Labs 09/03/17: AFP 8.1, CA 125 182, CEA 1.5, CA 19-9 18, Alb 3.4, Plt 82. Liver biopsy results from R lobe 09/07/17: atypical hepatocytes in a background of necrotic debris, highly suspicious for well differentiated hepatocellular carcinoma. [facility] review confirmed well diff HCC 09/15/17. COMORBIDITIES: 1. BMI of 30.3 [facility] 10/06/17 (previously 30.05 Aug 2017). 2. Nonalcoholic fatty liver disease on ultrasound as well as history of diabetes as a predisposing risk factor. 3. Diabetes mellitus. 4. Hepatitis A immune. 5. Hypertension. 6. Depression. 7. Arthritis. 8. Back pain. 9. Anemia requiring blood transfusions in the past. 10. History of eating dirt. 11. History of gastritis. 12. Gastroesophageal reflux disease without esophagitis. 13. Epistaxis, which is frequent and leading to anemia or at least contributing to it. 14. History of systolic murmur diagnosed 11/2016. 15. History of C-sections x3. 16. 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 17. History of blood transfusions in 1973, 2013, and 2014. 18. Complication of portal hypertension with borderline thrombocytopenia with platelet count in the low 100s as well as significant varices around the spleen. 19. US-guided liver bx Kalli Muhammad [facility] 04/07/17 showed chronic hepatitis C, lobular necroinflammatory activity grade 1/4, portal necroinflammatory activity grade 2/ 4, fibrosis stage and grade 3-4/4. Also, a focus of possible thickened hepatic plates identified. This was sent to Dr. Collin Mcadams [facility], who thought that the biopsy appeared worrisome, but not diagnostic for hepatocellular carcinoma. Repeat CT-guided liver bx [facility] ([facility]) Dr. Zaman. Liver biopsy results from R lobe 09/07/17: atypical hepatocytes in a background of necrotic debris, highly suspicious for well differentiated hepatocellular carcinoma. Subjective: No major events or complaints; no abd pain; minor right flank pain; no n/v/d; no sob or cp; + bowel activity; + flatus; + BM and normal; + activity Objective: Vitals: See below Exam: GENERAL: On exam, the patient was sitting up in a chair and appeared to be comfortable and in no acute distress. ABDOMEN: Soft, nontender and nondistended. There are no peritoneal signs or guarding. SKIN: Skin appears to be pink and feels warm to touch. NEUROLOGIC: Patient is awake, alert, and follows commands appropriately. Exam/Review of Systems Vital Signs Vitals Vital Signs Date Time Temp Pulse Resp B/P Pulse Ox O2 Delivery O2 Flow Rate FiO2 10/06/17 13:15 98.0 83 18 136/61 98 Room Air ARIE TOBIAS M.D. Oct 06, 2017 17:28
== END 2017-10-06 17:00 | disposition home or self-care (01) ==
LOC: HPC 13:13
PROVIDERS: ATTEND Transplant Surgery
DX: K76.9 Liver disease, unspecified (principal); I10 Essential (primary) hypertension; E11.9 Type 2 diabetes mellitus without complications; F32.9 Major depressive disorder, single episode, unspecified; B19.20 Unspecified viral hepatitis C without hepatic coma
CPT/HCPCS: G0463

== ENCOUNTER 2018-05-14 09:15 | Emergency (ER) | END 2018-05-14 13:37 | disposition home or self-care (01) ==

== ENCOUNTER 2018-06-01 14:04 | Inpatient (IN) | END 2018-06-08 19:05 | disposition home or self-care (01) | DRG 435 ==

== ENCOUNTER 2018-09-12 14:34 | Inpatient (IN) | END 2018-09-14 19:00 | disposition home or self-care (01) | DRG 689 ==

== ENCOUNTER → 2018-12-16 | Outpatient (CLI) | payer OTHER ==
[~2018-12-16] MED LIST changes: -ACET-2047 PO; +CHOL200073 PO; -FER325 PO; +FURO-110 PO; +GABA300C16 PO; -GLIP-95 PO; +GLIP5TAB13 PO; +LACT10SO5 PO; +LEVO250T22 PO; -RANI300T PO; +SPIR50TA PO
== END | disposition home or self-care (01) ==
LOC: PUL 12:50
PROVIDERS: ATTEND Internal Medicine Transplant Hepatology
DX: K74.60 Unspecified cirrhosis of liver (principal); D01.5 Carcinoma in situ of liver, gallbladder and bile ducts; K75.81 Nonalcoholic steatohepatitis (NASH)
CPT/HCPCS: 36600; 82803; 94010; 94726; 94729